=== PATIENT | female | born 2000 | race African-American/Black ===

== ENCOUNTER 2021-02-13 23:52 | Inpatient (IN) ==
[2021-02-14] MEDS ORDERED: ONDANSETRON 4 MG/2 ML VIAL IV PRN ×2 (00:05→18:36)
[2021-02-14] MEDS ORDERED: BUTORPHANOL 2 MG/ML VIAL IV PRN (00:05)
[2021-02-14] MEDS ORDERED: MEPERIDINE 50 MG/1 ML VIAL IV PRN (00:05)
[2021-02-14 00:49] LABS: Alanine Aminotransferase 14 U/L (13-56); Albumin 2.6 G/DL (3.4-5.0); Alkaline Phosphatase 159 U/L (45-117); Aspartate Amino Transferase 14 U/L (0-37); Bilirubin,Total < 0.39 MG/DL (0.20-1.00); Blood Urea Nitrogen 9 MG/DL (7-18); Carbon Dioxide 22 MMOL/L (21-32); Estimated Glom Filtration Rate 170 ML/MIN; Glucose 183 MG/DL (74-106); Osmolality,Calculated 276.8 MOS/KG (273-304); Potassium 3.6 MMOL/L (3.5-5.1); Sodium 137 MMOL/L (136-145)
[2021-02-14 01:01] LABS: Basophils % 0.3 % (0.0-0.8); Eosinophils # 0.2 10*3/uL (0.0-0.87); Eosinophils % 1.7 % (0.00-10.9); Hematocrit 32.6 VOL% (35.7-47.0); Hemoglobin 11.1 GM/DL (12.0-16.0); Immature Granulocytes % 0.7 %; Immature Granulocytes Absolute 0.07 #; Lymphocytes # 2.3 10*3/uL (1.4-4.0); Lymphocytes % 24.2 % (21.3-54.2); Mean Corpuscular Volume 74.1 FL (87-102); Mean Platelet Volume 11.5 FL (9.6-12.0); Monocytes % 7.9 % (1.7-12.7); Neutrophils % 65.2 % (38.7-73.9); Platelet Count 271 T/CUMM (130-400); Red Cell Distribution Width 15.9 % (9.3-17.3); White Blood Count 9.6 T/CUMM (4-12)
[2021-02-14] MEDS ORDERED: TERBUTALINE 1 MG/1 ML VIAL ONE (08:00)
[2021-02-14] MEDS: TERBUTALINE 1 MG/1 ML VIAL SUBCUT PRN ×2 (08:04→14:59)
[2021-02-14] MEDS ORDERED: ceFAZolin 3,000 MG in SYRINGE 1 EACH IV ONE ×2 (08:11→16:30)
[2021-02-14] MEDS ORDERED: OXYTOCIN/LR 30 UNIT/1,000 ML BAG IV ONE (08:11)
[2021-02-14] MEDS ORDERED: OXYTOCIN 10 UNIT/ML VIAL IM ONE (08:11)
[2021-02-14] MEDS ORDERED: ONDANSETRON 4 MG/2 ML VIAL IV ONE (08:13)
[2021-02-14] MEDS ORDERED: PROMETHAZINE 25 MG/1 ML VIAL IM ONE (08:13)
[2021-02-14] MEDS ORDERED: ePHEDrine 50 MG/ML VIAL IV PRN (08:13)
[2021-02-14] MEDS ORDERED: CITRIC ACID/SODIUM CITRATE 30 ML UDCUP PO ONE (08:13)
[2021-02-14] MEDS ORDERED: FAMOTIDINE 20 MG/2 ML VIAL IV ONE (08:13)
[2021-02-14] MEDS ORDERED: diphenhydrAMINE 50 MG/1 ML VIAL IV PRN ×2 (08:13)
[2021-02-14] MEDS ORDERED: hydrOXYzine HCL 25 MG/1 ML VIAL IM PRN (08:13)
[2021-02-14] MEDS: LACTATED RINGERS 1,000 ML IV PRN ×2 (08:23→09:20)
[2021-02-14] MEDS ORDERED: OXYTOCIN/LR 20 UNIT/1,000 ML BAG IV SCH (10:00)
[2021-02-14] MEDS: MEPERIDINE 50 MG/1 ML VIAL IV PRN ×2 (10:26→11:26)
[2021-02-14] MEDS ORDERED: fentaNYL 2 MCG/ROPIV 0.2% EPID 100 ML EPIDURAL ONE (12:33)
[2021-02-14 14:45] LABS: Bacteria,Urine Occasional /HPF (Few); Bilirubin,Urine Negative (Negative); Blood, Urine Negative (Negative); Glucose,Urine (UA) Negative (Negative); Hyaline Casts,Urine 3 /LPF (0-3); Ketones,Urine 20 mg/dL (Negative); Mucus,Urine Many /LPF (Occasional); Nitrite,Urine Negative (Negative); Protein,Urine 100 MG/DL; RBC,Urine 1 /HPF (0-4); Squamous Epithelial Cell,Urine Occasional /HPF (0-10); Urine Appearance Slightly Hazy (Clear); Urine Color Yellow (Yellow); Urine Specific Gravity 1.028 (1.001-1.035); Urine Urobilinogen < 2.0 EU/DL (0.2-1.0)
[2021-02-14] MEDS ORDERED: OXYTOCIN 10 UNIT/ML VIAL ONE (16:27)
[2021-02-14] MEDS ORDERED: ONDANSETRON 4 MG/2 ML VIAL ONE (17:17)
[2021-02-14] MEDS ORDERED: METOCLOPRAMIDE 10 MG/2 ML VIAL ONE (17:17)
[2021-02-14] MEDS ORDERED: PHENYLEPHRINE 1 MG/10 ML SYRINGE IV ONE (17:43)
[2021-02-14] MEDS ORDERED: LIDOCAINE MPF 2% /EPI 20 ML VIAL ONE (17:43)
[2021-02-14] MEDS ORDERED: LACTATED RINGERS 1,000 ML IV ONE (17:52)
[2021-02-14] MEDS ORDERED: miSOPROStoL 200 MCG TABLET ONE (17:54)
[2021-02-14] MEDS ORDERED: TRANEXAMIC ACID 1,000 MG/10 ML VIAL ONE (17:54)
[2021-02-14] MEDS ORDERED: CARBOPROST TROMETHAMINE 250 MCG/ML AMP IM ONE (17:55)
[2021-02-14] MEDS ORDERED: METHYLERGONOVINE 0.2 MG/1 ML AMP ONE (17:55)
[2021-02-14] MEDS ORDERED: KETOROLAC 30 MG/1 ML VIAL ONE (18:09)
[2021-02-14 18:25] LABS: Cord Arterial Blood HCO3 12.1 MMOL/L
[2021-02-14 18:29] LABS: Cord Venous Blood PO2 < 19.0 MMHG
[2021-02-14] MEDS ORDERED: SIMETHICONE CHEW 80 MG TABLET PO PRN (18:36)
[2021-02-14] MEDS ORDERED: ACETAMINOPHEN 325 MG TABLET PO PRN (18:36)
[2021-02-14] MEDS ORDERED: MAGNESIUM HYDROXIDE SUSP 30 ML UDCUP PO PRN (18:36)
[2021-02-14] MEDS ORDERED: RHO(D) IMMUNE GLOBULIN 300 MCG SYRINGE IM ONE (18:36)
[2021-02-14] MEDS ORDERED: OXYTOCIN/LR 20 UNIT/1,000 ML BAG IV ONE (18:36)
[2021-02-14 18:37] LABS: Cord Venous Blood PCO2 141.1 MMHG
[2021-02-14] MEDS ORDERED: LACTATED RINGERS 1,000 ML IV SCH (19:00)
[2021-02-15] MEDS: KETOROLAC 30 MG/1 ML VIAL IV SCH ×3 (00:51→12:28)
[2021-02-15] MEDS: DOCUSATE SODIUM 100 MG CAPSULE PO SCH ×3 (00:55→21:02)
[2021-02-15] MEDS: ACETAMINOPHEN 500 MG TABLET PO SCH ×3 (00:55→10:36)
[2021-02-15 02:12] LABS: Basophils % 0.2 % (0.0-0.8); Hematocrit 31.7 VOL% (35.7-47.0); Hemoglobin 10.9 GM/DL (12.0-16.0); Immature Granulocytes % 0.4 %; Immature Granulocytes Absolute 0.07 #; Mean Corpuscular HGB Conc 34.4 GM/DL (32-36); Mean Corpuscular Volume 74.1 FL (87-102); Mean Platelet Volume 11.5 FL (9.6-12.0); Monocytes % 8.6 % (1.7-12.7); Neutrophils % 84.8 % (38.7-73.9); Platelet Count 232 T/CUMM (130-400); Red Blood Count 4.28 MC/CUMM (3.8-5.5); Red Cell Distribution Width 16.2 % (9.3-17.3); White Blood Count 16.7 T/CUMM (4-12)
[2021-02-15] MEDS ORDERED: INFLUENZA VIRUS VACCINE 0.5 ML SYRINGE IM ONE (02:38)
[2021-02-15] MEDS: MULTIVITAMIN (PRENATAL) TABLET PO SCH (08:27)
[2021-02-15] MEDS: METOCLOPRAMIDE 10 MG TABLET PO SCH ×3 (08:27→23:53)
[2021-02-15 10:17] LABS: Basophils % 0.2 % (0.0-0.8); Eosinophils % 0.1 % (0.00-10.9); Hematocrit 31.8 VOL% (35.7-47.0); Hemoglobin 10.8 GM/DL (12.0-16.0); Immature Granulocytes % 0.4 %; Immature Granulocytes Absolute 0.07 #; Lymphocytes # 1.3 10*3/uL (1.4-4.0); Lymphocytes % 7.8 % (21.3-54.2); Mean Corpuscular Volume 74.6 FL (87-102); Mean Platelet Volume 11.4 FL (9.6-12.0); Monocytes % 7.9 % (1.7-12.7); Neutrophils % 83.6 % (38.7-73.9); Platelet Count 238 T/CUMM (130-400); Red Blood Count 4.26 MC/CUMM (3.8-5.5)
[2021-02-15] MEDS: IBUPROFEN 800 MG TABLET PO PRN (21:04)
[2021-02-16] MEDS: IBUPROFEN 800 MG TABLET PO PRN (05:24)
[2021-02-16] MEDS: MULTIVITAMIN (PRENATAL) TABLET PO SCH (08:22)
[2021-02-16] MEDS: DOCUSATE SODIUM 100 MG CAPSULE PO SCH (08:22)
[2021-02-16] MEDS: METOCLOPRAMIDE 10 MG TABLET PO SCH (08:23)
[2021-02-16 08:39] VITALS: BP 143/73
== END 2021-02-16 13:56 | disposition home or self-care (01) | DRG 788 ==
LOC: N.LD 23:52 → N.OB 02-15 01:00
PROVIDERS: ADMIT Obstetrics & Gynecology; ATTEND Obstetrics & Gynecology
PROC: LDCSECT (ICD-10-PCS; 2021-02-14 16:55)